=== PATIENT | female | born 1945 | race Caucasian/White ===

== ENCOUNTER 2025-01-29 11:16 | Inpatient (IN) | payer MEDICARE, BC, SELFPAY ==
[2025-01-29] VITALS (21 sets, daily range): BP systolic 102–143; BP diastolic 54–82; PULSE 49–82; RESP 11–19; TEMP 35.9–37.3; O2SAT 89–100; BMI 22.6
--- OUTSIDE RECORDS SUMMARY | 2025-01-29 11:38 | XMS_ITS | Data Portability ---
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 Plan of Treatment Reminders Order Date Submit Date Provider Last Modified By Organization Details Last Modified Time Details Appointments None record ed. Lab None record ed. Referral None record ed. Procedures None record ed. Surgeries None record ed. Imaging None record ed. Medication Orders None record ed. Patient TargetsNo targets recorded. Patient InstructionsNo instructions recorded. Reason for Referral None Reported. Results Created Date Observation Date Name Description Value Unit Range Abnormal Flag Note LastModifiedBy Organization Detail LastModifiedTime 06/19/1906/19/2018 CBC w/ auto diff white blood cell count 8.7 thous and/u L 3.8-10 .8 normal Not Available [facility] [address], [place], [address], 06/19/2018 07:48:19 06/19/1906/19/2018 CBC w/ auto diff red blood cell count 4.50 korin on/uL 3.80-5 .10 normal Not Available [facility] [address], [place], [address], 06/19/2018 07:48:19 06/19/1906/19/2018 CBC w/ auto diff hemoglobin 14.1 g/dL 11.7-1 5.5 normal Not Available [facility] [address], [place], [address], 06/19/2018 07:48:19 06/19/1906/19/2018 CBC w/ auto diff hematocrit 42.0 % 35.0-4 5.0 normal Not Available [facility] [address], [place], [address], 06/19/2018 07:48:19 06/19/1906/19/2018 CBC w/ auto diff MCV 93.3 fL 80.0-1 00.0 normal Not Available [facility] [address], [place], [address], 06/19/2018 07:48:19 06/19/1906/19/2018 CBC w/ auto diff MCH 31.3 pg 27.0-3 3.0 normal Not Available [facility] [address], [place], [address], 06/19/2018 07:48:19 06/19/1906/19/2018 CBC w/ auto diff MCHC 33.6 g/dL 32.0-3 6.0 normal Not Available [facility] [address], [place], [address], 06/19/2018 07:48:19 06/19/1906/19/2018 CBC w/ auto diff RDW 12.2 % 11.0-1 5.0 normal Not Available [facility] [address], [place], [address], 06/19/2018 07:48:19 06/19/1906/19/2018 CBC w/ auto diff platelet count 231 thous and/u L 140-40 0 normal Not Available [facility] [address], [place], [address], 06/19/2018 07:48:19 06/19/1906/19/2018 CBC w/ auto diff MPV 10.5 fL 7.5-12 .5 normal Not Available [facility] [place] [facility] [address], [place], [address], 06/19/2018 07:48:19 06/19/1906/19/2018 CBC w/ auto diff absolute neutrophils 7212 cells /uL 1500-7 800 normal Not Available [facility] [place] [facility] [address], [place], [address], 06/19/2018 07:48:19 06/19/1906/19/2018 CBC w/ auto diff absolute lymphocytes 1035 cells /uL 850-39 00 normal Not Available [facility] [place] [facility] [address], [place], [address], 06/19/2018 07:48:19 06/19/1906/19/2018 CBC w/ auto diff absolute monocytes 392 cells /uL 200-95 0 normal Not Available [facility] [place] [facility] [address], [place], [address], 06/19/2018 07:48:19 06/19/1906/19/2018 CBC w/ auto diff absolute eosinophils 17 cells /uL 15-500 normal Not Available [facility] [place] [facility] [address], [place], [address], 06/19/2018 07:48:19 06/19/1906/19/2018 CBC w/ auto diff absolute basophils 44 cells /uL 0-200 normal Not Available [facility] [place] [facility] [address], [place], [address], 06/19/2018 07:48:19 06/19/1906/19/2018 CBC w/ auto diff neutrophils 82.9 % normal Not Available [facility] [place] [facility] [address], [place], [address], 06/19/2018 07:48:19 06/19/1906/19/2018 CBC w/ auto diff lymphocytes 11.9 % normal Not Available [facility] [address], [place], [address], 06/19/2018 07:48:19 06/19/1906/19/2018 CBC w/ auto diff monocytes 4.5 % normal Not Available [facility] [address], [place], [address], 06/19/2018 07:48:19 06/19/1906/19/2018 CBC w/ auto diff eosinophils 0.2 % normal Not Available [facility] [address], [place], [address], 06/19/2018 07:48:19 06/19/1906/19/2018 CBC w/ auto diff basophils 0.5 % normal Not Available [facility] [address], [place], [address], 06/19/2018 07:48:19 06/19/1906/19/2018 CMP, serum or plasm a glucose 89 mg/dL 65-99 normal Fasti ng refer ence inter santos Not Available [facility] [address], [place], [address], 06/19/2018 07:48:18 06/19/1906/19/2018 CMP, serum or plasm a urea nitrogen (BUN) 12 mg/dL 7-25 normal Not Available [facility] [address], [place], [address], 06/19/2018 07:48:18 06/19/1906/19/2018 CMP, serum or plasm a creatinine 0.85 mg/dL 0.60-0 .93 normal For patie nts >49 years of age, the refer ence limit for Creat inine is appro ximat karlie 13% highe r for peopl e ident ified as Afric an-Am wing n. Not Available [facility] [address], [place], [address], 06/19/2018 07:48:18 06/19/1906/19/2018 CMP, serum or plasm a eGFR non-afr. gambian 69 mL/mi n/1.7 3m2 > or = 60 normal Not Available [facility] [address], [place], [address], 06/19/2018 07:48:18 06/19/1906/19/2018 CMP, serum or plasm a eGFR 80 mL/mi n/1.7 3m2 > or = 60 normal Not Available [facility] [address], [place], [address], 06/19/2018 07:48:18 06/19/1906/19/2018 CMP, serum or plasm a BUN/creatini ne ratio not applic able (calc ) 6-22 Not Available [facility] [address], [place], [address], 06/19/2018 07:48:18 06/19/1906/19/2018 CMP, serum or plasm a sodium 137 mmol/ L 135-14 6 normal Not Available [facility] [address], [place], [address], 06/19/2018 07:48:18 06/19/1906/19/2018 CMP, serum or plasm a potassium 4.7 mmol/ L 3.5-5. 3 normal Not Available [facility] [address], [place], [address], 06/19/2018 07:48:18 06/19/1906/19/2018 CMP, serum or plasm a chloride 99 mmol/ L 98-110 normal Not Available [facility] [address], [place], [address], 06/19/2018 07:48:18 06/19/19 19 06/19/2018 CMP, serum or plasm a carbon dioxide 28 mmol/ L 20-32 normal Not Available [facility] [address], [place], [address], 06/19/2018 07:48:18 06/19/19 19 06/19/2018 CMP, serum or plasm a calcium 9.8 mg/dL 8.6-10 .4 normal Not Available [facility] [address], [place], [address], 06/19/2018 07:48:18 06/19/1906/19/2018 CMP, serum or plasm a protein, total 7.5 g/dL 6.1-8. 1 normal Not Available [facility] [address], [place], [address], 06/19/2018 07:48:18 06/19/19 19 06/19/2018 CMP, serum or plasm a albumin 4.3 g/dL 3.6-5. 1 normal Not Available [facility] [address], [place], [address], 06/19/2018 07:48:18 06/19/1906/19/2018 CMP, serum or plasm a globulin 3.2 g/dL_ (calc ) 1.9-3. 7 normal Not Available [facility] [address], [place], [address], 06/19/2018 07:48:18 06/19/1906/19/2018 CMP, serum or plasm a albumin/glob ulin ratio 1.3 (calc ) 1.0-2. 5 normal Not Available [facility] [address], [place], [address], 06/19/2018 07:48:18 06/19/1906/19/2018 CMP, serum or plasm a bilirubin, total 0.9 mg/dL 0.2-1. 2 normal Not Available [facility] [address], [place], [address], 06/19/2018 07:48:18 06/19/19 19 06/19/2018 CMP, serum or plasm a alkaline phosphatase 56 U/L 33-130 normal Not Available [facility] [address], [place], [address], 06/19/2018 07:48:18 06/19/19 19 06/19/2018 CMP, serum or plasm a AST 20 U/L 10-35 normal Not Available [facility] [address], [place], [address], 06/19/2018 07:48:18 06/19/19 19 06/19/2018 CMP, serum or plasm a ALT 22 U/L 6-29 normal Not Available [facility] [address], [place], [address], 06/19/2018 07:48:18 Result Notes None recorded. Problems Name Problem SNOMED Code Status Onset Date Resolution Date Notes Provider Name and Address Organization Details Recorded Time Diverticu litis 393676610 Active 2018 s/p colectomy reed it Not Available [facility] 18:39:43 Osteoarth ritis 249065354 Active 2018 Not Available [facility] 18:39:43 Problem Notes None recorded. Medical Equipment None Reported. Allergies Allergen ID Allergen Name Allergen Category Reaction Reaction Severity Criticality Documentation Date Start Date Code Code System Note Provider Name and Address Organization Details Recorded Time 625090 Flagyl medicatio n nausea Not available Not available 03/05/2021 6 RxNorm Not Available [facility] 18:57:04 Medications Name Sig Start Date Stop Date Status Note LastModified by Organization Details LastModified Time betamethaso ne, augmented 0.05 % topical cream APPLY TWICE A DAY TO AREAS ON FEET FOR UP TO 2 WEEKS AT A TIME AND REPEAT NEEDED active Not Available Not Available No t Available ciprofloxac in 500 mg tablet Take 1 tablet every 12 hours by oral route. 02/23 completed Not Available Not Available Not Available cephalexin 500 mg capsule Take 1 capsule 3 times a day by oral route. active Not Available Not Available No t Available metronidazo le 0.75 % topical cream APPLY THIN LAYER TO ENTIRE FACE 1-2X DAILY 02/23 completed Not Available Not Available Not Available mupirocin 2 % topical ointment APPLY A SMALL AMOUNT TO THE AFFECTED AREA BY TOPICAL ROUTE 3 TIMES PER DAY active Not Available Not Available No t Available collagen (bovine) 2020 active Not Available Not Available Not Avai lable diclofenac 1 % topical gel APPLY 2 GRAM TO THE AFFECTED AREA(S) BY TOPICAL ROUTE 4 TIMES PER DAY 06/18 completed Not Available Not Available Not Available SulfaCleans e 8-4 8 %-4 % topical suspension WASH FACE DAILY LATHER AND LET SIT BEFORE RINSING FEW MINUTES BEFORE RINSING active Not Available Not Available No t Available [facility] [employer] patient takes Osteo Prime 2018 active Not Available Not Available Not Avai lable Fish Oil 1,000 mg (120 mg-180 mg) capsule one daily 02/23 completed Not Available Not Available Not Available cannabidiol (CBD) oral oil once a day 06/18 completed Not Available Not Available Not Available cannabidiol (CBD) extract 2020 active Not Available Not Available Not Avai lable turmeric 1,000 mg a day 2018 active Not Available Not Available Not Avai lable Vitals Date Recorded Body mass index (BMI) Body height Oxygen saturation Oxygen saturation in Arterial blood by Pulse oximetry Heart rate Respiratory rate Body weight Systolic And Diastolic Provider Name and Address Organization Details Last Updated DateTime 9 21.6 kg/m2 165.1 cm 97 % 97 % 70 /min 16 /min 73845.0 1 g 104/64 mm[Hg] Not Available [facility] 18:35:49 Date Recorded Body mass index (BMI) Body height Oxygen saturation Oxygen saturation in Arterial blood by Pulse oximetry Heart rate Respiratory rate Body weight Systolic And Diastolic Provider Name and Address Organization Details Last Updated DateTime 9 24.3 kg/m2 165.1 cm 98 % 98 % 72 /min 16 /min 25504.4 9 g 112/70 mm[Hg] Not Available [facility] 18:35:49 Social History None recorded. Functional Status None recorded. Mental Status None recorded. Family History Nothing Reported. Medical History No medical history recorded. Gynecological HistoryNo gynecological history recorded. Obstetrics History GPAL:G 0 P 0 0 0 0 Immunizations Vaccine Type Date Status Note Provider Nam e and Address Organization Details Recorded Time zoster, unspecified formulation 8 completed Not Available [facility] 03/05/2021 18:55:25 Influenza, split virus, quadrivalent, preservative 8 completed Not Available [facility] 03/05/2021 18:55:25 Td(adult) unspecified formulation 7 completed Not Available [facility] 03/05/2021 18:55:25 Past Encounters Encounter ID Performer Location Encounter Start Date Encounter Closed Date Diagnosis/Indication Diagnosis SNOMED-CT Code Diagnosis ICD10 Code Diagnosis IMO Codes Diagnosis Note [id number] MD ALLEN Whalen [address] [place] [address] 04/13/2018 00:00:00 05/12/2018 18:07:35 [id number] MD ALLEN Whalen [address] [place] [address] 06/18/2018 00:00:00 06/18/2018 21:52:32 [id number] MD ALLEN Whalen [address] [place] [address] 02/23/2021 00:00:00 02/23/2021 11:59:00 Health Concerns Section Related Observation LastModified by Organization Detai ls LastModified Time None Recorded Concern Status LastModified by Organization Details LastModified Time None Recorded Advance Directives Directive None Recorded Payers Insurance Date Sequence Insurance Name Policy Number Policy Timmons Covered Member ID Timmons Member ID Guarantor Name 05/10/2021 1 [place] Daria Hale [id number] Daria Hale 05/10/2021 1 [facility] [id number] Daria Hale [id number] Daria Hale 05/10/2021 1 [place]) [id number] Daria Hale [id number] Daria Hale OBGyn Episode No OBEpisode recorded.
--- NOTE | 2025-01-29 11:43 | CRLHL7_ITS ---
For Patients: As a result of the Century Cures Act, medical imaging exams and procedure reports are released immediately into your electronic medical record. You may view this report before your referring provider. If you have questions, please contact your health care provider. INDICATION: Preoperative cardiovascular evaluation. COMPARISON: None available. TECHNIQUE: Single AP view of the chest. FINDINGS: Medical Devices: None. Lung Volumes: Adequate inspiration. No significant atelectasis. Lungs: Clear lungs. Pleura and Pleural spaces: No significant pleural effusion. No pneumothorax. Mediastinum: Normal cardiomediastinal silhouette. Bony Thorax and Soft Tissues: No significant incidental findings. Incidental note is made of mild lower thoracic dextroscoliosis. IMPRESSION: No significant incidental findings. Dictated by Mich Thompson MD @ 01/29/2025 12:36:28 PM (Electronically Signed)
--- NOTE | 2025-01-29 11:45 | ED_ITS ---
HPI - General Adult General Chief complaint: Unspecified Complaint, Adult Stated complaint: Needs hip procedure Time Seen by Provider: 01/29/25 11:22 History of Present Illness HPI narrative: Patient is a 79 year white female who unfortunately broke her hip a couple weeks ago, she has been doing some PT walking with a cane. She had a CT scan done that showed a hip fracture and is scheduled for surgery today. She unfortunately did not get a preoperative evaluation complete, and was sent to the ER. The patient has been NPO since last night at 7:00 p.m.. She describes a history of peripheral neuropathy. She has been on only oral medicines [id number]. No blood thinners. No history of bleeding or bruising problems. She has had no chest pain or shortness of breath. No cardiovascular history. She is allergic to the Lexapro and Flagyl, with more untoward side effects r ather than true allergy. Related Data Home Medications ?Medication ?Instructions ?Recorded ?Confirmed No Known Home Medications 01/29/2501/09 Allergies Allergy/AdvReac Type Severity Reaction Status Date / Time escitalopram (From Lexapro) Allergy increased Verified 01/29/25 11:26 nausea and anxiety metronidazole (From Flagyl) AdvReac nausea and Verified 01/29/25 11:26 headache Review of Systems Status of ROS: Reports: 6 or more systems reviewed and unremarkable except as noted in History and below [facility] Medical History Hoarseness of voice ?R49.0 - Dysphonia (ICD-10) Rosacea ?L71.9 - Rosacea, unspecified (ICD-10) Anxiety ?F41.9 - Anxiety disorder, unspecified (ICD-10) Peripheral sensory neuropathy ?G60.8 - Other hereditary and idiopathic neuropathies (ICD-10) Leukopenia ?D72.819 - Decreased white blood cell count, unspecified (ICD-10) Diverticulitis ?K57.92 - Diverticulitis of intestine, part unspecified, without perforation or abscess without bleeding (ICD-10) Osteopenia ?M85.80 - Other specified disorders of bone density and structure, unspecified site (ICD-10) Surgical History Status post sclerotherapy of varicose veins ?Z98.890 - Other specified postprocedural states (ICD-10) ?Z86.79 - Personal history of other diseases of the circulatory system (ICD- 10) History of appendectomy ?Z90.49 - Acquired absence of other specified parts of digestive tract (ICD- 10) History of removal of ovarian cyst (1979) ?Z98.890 - Other specified postprocedural states (ICD-10) ?Z87.42 - Personal history of other diseases of the female genital tract (ICD-10) History of resection of large bowel (10/2006) ?Z90.49 - Acquired absence of other specified parts of digestive tract (ICD- 10) History of esophagogastroduodenoscopy (EGD) (11/03/11) ?Z98.890 - Other specified postprocedural states (ICD-10) Status post laser ablation of incompetent vein (2007) ?Z98.890 - Other specified postprocedural states (ICD-10) Social History Narrative: former smoker (1976) Smoking Status: Former smoker What tobacco products do you use: cigarettes Smoking quit date/years: >15 years ago Do you use any of these nicotine containing products: None Second hand tobacco smoke exposure: No Exam Narrative: Exam Narrative: Objective: Patient is alert or x3 no distress HEENT is unremarkable no facial asymmetry no scleral icterus Neck is supple Chest is clear no rales or wheezing Back exam unremarkable no tenderness Heart rhythm regular 2/6 systolic murmur Abdomen benign soft nontender Mild tenderness with movement of the left hip. Distal CMS shows some slight bruising of her ankle area anteriorly but no marked edema or swelling. Distal CMS is intact. Const: Vital Signs, click to edit/add: Vital Signs - 24 hr 01/29/25 11:20 Temperature 97.5 F L Pulse Rate [Right Pulse Oximeter] 71 Respiratory Rate 18 Blood Pressure [Ri ght Upper Arm] 135/78 Pulse Oximetry 100 Oxygen Delivery Me thod Room Air Course Vital Signs Vital signs: Initial Vital Signs Temperature 97.5 F L 01/29/25 11:20 Temperature Source Temporal Artery Scan 01/29/25 11:20 Pulse Rate 71 01/29/25 11:20 Pulse Rhythm Regular 01/29/25 11:20 Pulse Strength 3+ Normal 01/29/25 11:20 Respiratory Rate 18 01/29/25 11:20 Blood Pressure 135/78 01/29/25 11:20 Blood Pressure Mean 97 01/29/25 11:20 Blood Pressure Position Sitting 01/29/25 11:20 Pulse Oximetry 100 01/29/25 11:20 Oxygen Delivery Method Room Air 01/29/25 11:20 Vital Signs Temperature 97.5 F L 01/29/25 11:20 Pulse Rate 71 01/29/25 11:20 Respiratory Rate 18 01/29/25 11:20 Blood Pressure 135/78 01/29/25 11:20 Pulse Oximetry 100 01/29/25 11:20 Oxygen Delivery Method Room Air 01/29/25 11:20 Temperature 97.5 F L 01/29/25 11:20 Pulse Rate 71 01/29/25 11:20 Respiratory Rate 18 01/29/25 11:20 Blood Pressure 135/78 01/29/25 11:20 Pulse Oximetry 100 01/29/25 11:20 Oxygen Delivery Method Room Air 01/29/25 11:20 Medications Administered Medications: Discontinued Medications Generic Name Dose Route Start Last Admin Trade Name Freq PRN Reason Stop Dose Admin Sodium Chloride 500 mls @ 500 mls/hr 01/29/25 11:43 01/29/25 12:44 0.9 % Sodium Chloride 500 Ml IV 01/29/25 12:42 500 mls/hr .Q1H ONE Administration Ceftriaxone Sodium 1 gm/ 100 mls @ 200 mls/hr 01/29/25 12:23 01/29/25 12:44 Sodium Chloride IVPB 01/29/25 12:24 200 mls/hr ONCE ONE Administration Medical Decision Making [facility] Narrative Medical decision making narrative: 79-year-old female with a femoral neck fracture, impacted. Orthopedics plans on fixing this later today, she has been NPO. Will type and screen, get an EKG, get a chest x-ray. IV fluid will be given should be kept NPO. Electrolytes and labs to be obtained as well as UA. Patient be sent to or after completion of these studies if these are reassuring. Anesthesia consult will be obtained. Given the patient's relative health NPO status, and lack of significant medical illnesses, she would be cleared for surgery for labs and EKG are reassuring. Addendum 12:20 p.m.: The patient's EKG by my ended independent interpretation shows sinus rhythm first-degree AV block nonspecific T-wave change. Patient's chest x-ray by my review looks unremarkable. She does appear to have a urinary tract infection was given 1 g of Rocephin IV. Lab studies are pending at this time the be reviewed in the return. Addendum 12:30 p.m.: Patient's ER profile looks unremarkable she will be evaluated by Anesthesia and Orthopedics and OR this afternoon. Given medical clearance for surgery. Lab Data Labs: Lab Results 01/29/25 01/29/25 Range/Units 11:55 12:12 WBC 3.90 L (4.50-11.00) K/uL RBC 4.68 (4.00-5.20) m/uL Hgb 14.6 (12.0-16.0) gm/dL Hct 43.4 (33.0-51.0) % MCV 93 (80-100) fL MCH 31 (26-34) pg MCHC 34 (32-36) gm/dL RDW Coeff of [place] 12.7 (11.5-15.5) % Plt Count 258 (140-440) K/uL Neut % (Auto) 77.9 H (42.0-72.0) % Lymph % (Auto) 15.1 L (20-44) % [place] % (Auto) 6.2 (0.0-11.0) % Eos % (Auto) 0.3 (0.0-7.0) % Baso % (Auto) 0.5 (0.0-3.0) % Neut # (Auto) 3.00 (1.7-7.0) K/uL Lymph # (Auto) 0.60 L (0.90-2.90) K/uL [place] # (Auto) 0.20 (0.00-0.90) K/UL Eos # (Auto) 0.00 (0.00-0.50) K/uL Baso # (Auto) 0.00 (0.00-0.30) K/uL Abs Immat Gran (auto) 0.00 (0.00-0.30) K/uL Imm/Tot Granulo (auto) 0.0 % Sodium 135 (135-149) mmol/L Potassium 4.2 (3.6-5.1) mmol/L Chloride 99 (96-114) mmol/L Carbon Dioxide 25 (20-32) mmol/L Anion Gap 11 (7-15) mEq/L BUN 18 (7-30) mg/dL Creatinine 0.7 (0.5-1.5) mg/dL Estimated Creat Clear 42.39 Estimated GFR 89 ml/min Glucose 104 (60-115) mg/dL Calcium 9.6 (8.4-10.6) mg/dL Urine Color Yellow (Yellow) Urine Appearance Clear (Clear) Urine pH 5.5 (5.0-8.5) Ur Specific [place] >= 1.030 (1.000-1.030) Urine Protein Trace A (Negative) Urine Glucose (UA) Negative (Negative) Urine Ketones 2+ A (Negative) Urine Blood Trace-intact A (Negative) Urine Nitrite Positive A (Negative) Urine Bilirubin Negative (Negative) Urine Urobilinogen 0.2 (0.2-1.0) Ur Leukocyte Esterase Negative (Negative) Urine RBC 0-2 (0-2) Urine WBC 10-25 A (0-5) Ur Squamous Epith Cells None (None-Few) Urine Bacteria Many A (None) Discharge Plan Discharge Clinical Impression: Hip fracture, Urinary tract infection Patient Disposition: Admitted As Inpatient Condition: Stable
[2025-01-29 12:02] LABS: Appearance Urine Clear (Clear)
[2025-01-29 12:19] LABS: Hematocrit* 43.4 % (33.0-51.0); Hemoglobin* 14.6 gm/dL (12.0-16.0); Immature Granulocytes Abs Auto 0.00 K/uL (0.00-0.30); Immature Granulocytes Pct Auto 0.0 %; Mean Corpuscular HGB Conc 34 gm/dL (32-36); Mean Corpuscular Hemoglobin 31 pg (26-34); Mean Corpuscular Volume 93 fL (80-100); RDW Coefficient of Variation % 12.7 % (11.5-15.5); Red Blood Count* 4.68 m/uL (4.00-5.20); White Blood Count* 3.90 K/uL (4.50-11.00)
[2025-01-29 12:23] LABS: Lymphocytes Absolute Auto 0.60 K/uL (0.90-2.90); Slide Review Reflex No
[2025-01-29 12:30] LABS: Chloride* 99 mmol/L (96-114)
[2025-01-29 12:31] LABS: Potassium* 4.2 mmol/L (3.6-5.1); Sodium* 135 mmol/L (135-149)
[2025-01-29 12:33] LABS: Blood Urea Nitrogen* 18 mg/dL (7-30); Creatinine* 0.7 mg/dL (0.5-1.5); Est. Creatinine Clearance* 42.39; Estimated Glomerular Filt Rate 89 ml/min
[2025-01-29 12:34] LABS: Anion Gap 11 mEq/L (7-15); Calcium* 9.6 mg/dL (8.4-10.6); Carbon Dioxide* 25 mmol/L (20-32); Glucose* 104 mg/dL (60-115)
--- NOTE | 2025-01-29 12:42 | CRLHL7_ITS ---
For Patients: As a result of the Cures Act, medical imaging exams and procedure reports are released immediately into your electronic medical record. You may view this report before your referring provider. If you have questions, please contact your health care provider. Indication: LEFT HIP ORIF Technique: Two fluoroscopic images of the left hip. Fluoroscopic time 54.5 seconds. IMPRESSION: Fluoroscopic guidance for open reduction internal fixation of proximal left femoral fracture. Dictated by Chase Murphy MD @ 01/29/2025 4:25:12 PM (Electronically Signed)
--- NOTE | 2025-01-29 12:42 | P.ORHP_ITS ---
History of Present Illness History of Present Illness Time Seen by Provider: 12:25 Date Seen: 01/29/25 Chief complaint: Left Hip Fracture Narrative: Daria Hale is an active 79 year old female who sustained a ground level fall over 2 weeks ago while getting out of a chair and landed on her left hip. Following the injury, she developed hip discomfort and right ankle pain. She was initially seen by an outside provider couple of days after the injury, and x-rays of the left ankle were reportedly negative. No imaging of the hip was performed at that visit. She was referred to physical therapy but continued to have hip discomfort with weight-bearing activities, which she localized to the anterior hip and groin. She was seen for follow-up at [facility] yesterday, where x-rays revealed a valgus impacted left hip femoral neck fracture. She was referred to Orthopedics this morning for further evaluation and treatment. Currently, patient reports discomfort in her left anterior hip and groin with weight-bearing activities. She denies pain at rest. Since her injury, she in using a cane for assistance with ambulation, but she use no assist devices prior to the injury. She has been taking ibuprofen and Tylenol on an as-needed basis for pain control. She has had nothing to eat or drink since last night. [facility] Medical History Hoarseness of voice ?R49.0 - Dysphonia (ICD-10) Rosacea ?L71.9 - Rosacea, unspecified (ICD-10) Anxiety ?F41.9 - Anxiety disorder, unspecified (ICD-10) Peripheral sensory neuropathy ?G60.8 - Other hereditary and idiopathic neuropathies (ICD-10) Leukopenia ?D72.819 - Decreased white blood cell count, unspecified (ICD-10) Diverticulitis ?K57.92 - Diverticulitis of intestine, part unspecified, without perforation or abscess without bleeding (ICD-10) Osteopenia ?M85.80 - Other specified disorders of bone density and structure, unsp ecified site (ICD-10) Surgical History Status post sclerotherapy of varicose veins ?Z98.890 - Other specified postprocedural states (ICD-10) ?Z86.79 - Personal history of other diseases of the circulatory system (ICD- 10) History of appendectomy ?Z90.49 - Acquired absence of other specified parts of digestive tract (ICD- 10) History of removal of ovarian cyst (1979) ?Z98.890 - Other specified postprocedural states (ICD-10) ?Z87.42 - Personal history of other diseases of the female genital tract (ICD -10) History of resection of large bowel (10/2006) ?Z90.49 - Acquired absence of other specified parts of digestive tract (ICD- 10) History of esophagogastroduodenoscopy (EGD) (11/03/11) ?Z98.890 - Other specified postprocedural states (ICD-10) Status post laser ablation of incompetent vein (2007) ?Z98.890 - Other specified postprocedural states (ICD-10) Social History Narrative: former smoker (1976) Smoking Status: Former smoker What tobacco products do you use: cigarettes Smoking quit date/years: >15 years ago Do you use any of these nicotine containing products: None Second hand tobacco smoke exposure: No Meds Home Medications and Allergies Home Medications ?Medication ?Instructions ?Recorded ?Confirmed ?Type No Known Home Medications 01/29/2501/09 History Allergies Allergy/AdvReac Type Severity Reaction Status Date / Time escitalopram (From Lexapro) Allergy increased Verified 01/29/25 11:26 nausea and anxiety metronidazole (From Flagyl) AdvReac nausea and Verified 01/29/25 11:26 headache Ortho Exam Narrative Exam Narrative: General: Patient is alert and oriented in no apparent distress. Musculoskeletal: Left lower extremity was examined. No obvious deformity or significant soft tissue swelling. No pain with range of motion of the hip. Sensation was intact to light touch throughout the dorsal plantar aspects of the foot. EHL, tibialis anterior, gastrocnemius/soleus were intact. Foot was warm and well perfused with 2+ DP and 1+ PT pulses. Const Vital Signs, click to edit/add: Vital Signs - 24 hr 01/29/25 11:20 Temperature 97.5 F L Pulse Rate [Right Pulse Oximeter] 71 Respiratory Rate 18 Blood Pressure [Right Upper Arm] 135/78 Pulse Oximetry 100 Oxygen Delivery Method Room Air Results Labs Labs: Laboratory Results - last 48 hr 01/29/25 01/29/25 11:55 12:12 WBC 3.90 L RBC 4.68 Hgb 14.6 Hct 43.4 MCV 93 MCH 31 MCHC 34 RDW Coeff of [place] 12.7 Plt Count 258 Neut % (Auto) 77.9 H Lymph % (Auto) 15.1 L [place] % (Auto) 6.2 Eos % (Auto) 0.3 Baso % (Auto) 0.5 Neut # (Auto) 3.00 Lymph # (Auto) 0.60 L [place] # (Auto) 0.20 Eos # (Auto) 0.00 Baso # (Auto) 0.00 Abs Immat Gran (auto) 0.00 Imm/Tot Granulo (auto) 0.0 Sodium 135 Potassium 4.2 Chloride 99 Carbon Dioxide 25 Anion Gap 11 BUN 18 Creatinine 0.7 Estimated Creat Clear 42.39 Estimated GFR 89 Glucose 104 Calcium 9.6 Urine Color Yellow Urine Appearance Clear Urine pH 5.5 Ur Specific [place] >= 1.030 Urine Protein Trace A Urine Glucose (UA) Negative Urine Ketones 2+ A Urine Blood Trace-intact A Urine Nitrite Positive A Urine Bilirubin Negative Urine Urobilinogen 0.2 Ur Leukocyte Esterase Negative Urine RBC 0-2 Urine WBC 10-25 A Ur Squamous Epith Cells None Urine Bacteria Many A Diagnostic results Additional Comments: AP pelvis, AP left hip, and lateral left hip x-rays performed at [facility] on 01/28/2025 were reviewed. These demonstrated a valgus impacted subcapital left femoral neck fracture. Hip joint spaces were well maintained with minimal degenerative changes. Assessment and Plan Assessment and plan (1) Closed fracture of neck of left femur: Problem comment: Valgus impacted subcapital femoral neck fracture Status: Acute (2) Urinary tract infection: Status: Acute Plan Patient has a valgus impacted subcapital left femoral neck fracture. Risks and benefits of operative treatment and alternatives to surgery were discussed with the patient and her . Recommendation was subsequently made for surgical intervention consisting of left hip closed versus open reduction and internal fixation to allow for early mobilization and advancement of weight-bearing, decreased pain, and healing of the fracture. We did talk about possible need for bipolar hip hemiarthroplasty should the fracture be noted to be more displaced intraoperatively. Risks of surgery to include, but not limited to, infection, neurovascular injury, malunion, nonunion, hip avascular necrosis, deep vein thrombosis, pulmonary embolism, heart attack, stroke, and even were discussed with patient and her . All of their questions were answered. After discussion, they were in agreement with plan to proceed with surgery. Patient is being admitted through the emergency department and has been medically cleared for surgery. She was noted to have a UTI on preoperative lab and was given a dose of Rocephin in the emergency department. We will plan to continue to treat this with oral antibiotics postoperative. She is to remain on bedrest with plan for surgery this afternoon. She has been NPO since before midnight last night.
[2025-01-29] MEDS: cefTRIAXone 1 GM in 0.9 % SODIUM CHLORIDE Mini-bag 100 ML IVPB (12:44)
[2025-01-29] MEDS: 0.9 % SODIUM CHLORIDE 500 ML 500 ML IV (12:44)
[2025-01-29] MEDS: LACTATED RINGERS 1000 ML 1,000 ML 100 ML IV ×2 (13:10→14:45)
[2025-01-29] MEDS: MIDAZOLAM HCL 1 MG/ML inj IVP (13:30)
--- NOTE | 2025-01-29 13:42 | PM.ORPRC ---
Procedure Note Date of procedure: 01/29/25 Procedure: PREOPERATIVE DIAGNOSES: 1. Left subcapital femoral neck fracture, closed, valgus impacted POSTOPERATIVE DIAGNOSES: 1. Left subcapital femoral neck fracture, closed, valgus impacted PROCEDURE: 1. Left femoral neck fracture fixation with internal fixation 2. 33498 - Intraoperative fluoroscopy up to 1 hour SURGEON: Pedrito Tamayo MD MACHINE INSPECTOR: Nan DalePGerson Assistance was medically necessary in order to safely perform the procedure without increased blood loss or morbidity. Assistance was provided through positioning, instrumentation, and retraction of incisions for better visualization of underlying structures and cauterization for hemostasis. Assistance was also provided through wound closure, instillation of anesthetic, application of sterile dressing, and safe transport from the operative suite. ANESTHESIA: Spinal with regional nerve block IMPLANTS: Synthes femoral neck system plate 1-hole with 75 mm femoral neck system bolt, 75 mm antirotation screw, and 5 mm x 30 mm locking screw EBL: 50 ml COMPLICATIONS: None evident INDICATIONS: Daria is a 79-year-old female who sustained a ground level fall in her home 2-3 weeks ago. Following the injury, she was able to bear weight but had persistent anterior hip and groin pain with weight-bearing activities. She was subsequently seen in an outpatient clinic and diagnosed with an impacted left femoral neck fracture. Surgical stabilization of this fracture is recommended to allow for early mobilization and advancement of weight-bearing, decreased pain, and healing of the fracture. Prior to procedure, risks and benefits of the operative and non operative treatment were discussed with the patient. After discussion of risks, benefits, and alternatives of surgery, informed consent was obtained and the left hip was marked. FINDINGS: Stable, valgus impacted, subcapital femoral neck fracture PROCEDURE: Patient was seen preoperatively and operative site was marked. Regional nerve block was then performed by anesthesia staff. She was then brought to the operating room, where general anesthesia was administered by the anesthesia staff. 1 g IV Ancef and 1 g TXA were administered preoperatively. The patient was positioned on the [place] table. A padded perineal post was placed and all bone prominences were well padded. Gentle traction was placed through the hip. Fluoroscopic imaging showed destruction of the hip joint but no movement at the fracture site. Given that fracture was 2-1/2-weeks-old and alignment was in acceptable position, we accepted this alignment and did not attempt further reduction. Left hip and lower extremity were prepped and draped in usual sterile fashion. A surgical time-out was performed confirming patient identity, surgical site, and surgical procedure. A skin incision was then made over the lateral aspect of the hip in line with the femoral neck axis, which measured approximately 6-8 cm in length. Deep fascial layer was incised in line with the skin incision and blunt dissection was used to dissect down to bone. Using the 130 degree angle guide, a guidewire was placed into the center-center position in the subchondral bone of the femoral head on both AP and lateral images. Once the guidewire was confirmed to be in correct position, depth was measured and decision was made to proceed with a 75 mm implant. Next, an antirotation guidewire was placed into the anterior superior aspect of the femoral neck and across the fracture site. Correct position of this anti rotation guidewire was confirmed with fluoroscopic imaging in AP and lateral planes. The opening drill bit and Reamer was then used ream over the guidewire for the bolt to the correct depth. The femoral neck system implant was then inserted over the guidewire and tapped down until the plate was flush with the lateral aspect of the femur. Guidewire was then removed. The hole for the locking screw was then drilled through the plate and the correct length 5.0 mm locking screw was inserted and secured into position. Next the hole for the anti rotation screw was drilled, and antirotation screw secured into position. Both guidewires were then removed, as was the insertion guide for the implant. Final fluoroscopic images were obtained which confirmed the fracture reduction and correct placement of the femoral neck implant system and screws. Wound was then irrigated with normal saline. The deep fascial layer was closed with 0 Vicryl and subcutaneous layer was closed with 2-0 Vicryl and 2-0 Stratafix. Sterile dressing was applied. Patient was awoken from anesthesia and transferred to the PACU in stable condition. PLAN: 1. Patient will be admitted to the hospital for observation and initial physical therapy. 2. Mobilize with physical therapy and occupational therapy. - Weight bear as tolerated left lower extremity. 3. Pain control: - Acetaminophen and Oxycodone for pain as needed. - IV pain medications for breakthrough pain - Ice for pain and swelling 4. Postoperative prophylactic antibiotics x2 doses 5. DVT prophylaxis: - aspirin 81 mg b.i.d.. for 35 days - SCDs bilateral lower extremities. 6. Follow-up with PA in Orthopedic Clinic in 1-2 weeks. Follow up with Dr. Tamayo [facility] 6 weeks postoperatively.
--- NOTE | 2025-01-29 13:58 | SUR.PREOP ---
TIME?OUT:?1328 PT/RN/MDA?VERIFICATION?OF?SURGICAL?SITE,?PROCEDURE,?AND?CONSENT OBTAINED?PRIOR?TO?INVASIVE?PROCEDURE. all in agreement
[2025-01-29] MEDS: TRANEXAMIC ACID 100 MG/ML INJ 1000 MG IV (14:00)
--- NOTE | 2025-01-29 14:57 | P.ANES_ITS ---
Anesthesia Charges Start Date/Time Anesthesia Start Date: 01/29/25 Anesthesia Start Time: 13:45 Stop Date/Time Anesthesia Stop Date: 01/29/25 Anesthesia Stop Time: 15:14 Summary Extremes of Age - Over 70 or under 1: MDA Coding CPT Codes CPT Codes: ANESTH SURGERY OF FEMUR - 35809 ([id number]) P1 - NORMAL HEALTHY PATIENT, QK - COFFEE HOST 2-4 CNCRNT ANES PROC, QX - MANAGER STERILE PROCESSING SVC W/ MD MED DIRECTION Additional Codes: Summary - Extremes of Age - Over 70 or under 1: MDA ([id number])
--- NOTE | 2025-01-29 14:57 | P.NB_ITS ---
Nerve Block Nerve Block Time Seen by Provider: 13:30 Date Seen: 01/29/25 Type of block requested by surgeon for post-operative analgesia: LEYLA/LFCN Side: left Time out performed: Yes Verification of patient name: Yes Verification of date of : Yes Site marking: site marked Name of person performing procedure: Steffen Continuous monitoring Was continuous monitoring of O2 sat, B/P, surveillance system monitor, recorded every 15 minutes?: Yes Procedure Checklist: sterile prep, needles and gloves Ultrasound guided. Images saved: Yes Medications given in 5ml increments after negative aspiration: Ropivicaine %: 0.5 mL: 30 Needle gauge: 20 Precedex (mcg): 25 Patient tolerated procedure well: Yes Additional comments: Needle noted below psoas tendon needle noted adjacent to LFCN Block Charges Block Charge (with Pro Fee): Other Periph Nerve Block Use of Ultrasound Machine for Block: Yes- US Guidance/pain block
--- NOTE | 2025-01-29 14:57 | W.ANESCHARGE ---
Anesthesia Charges Start Date/Time Anesthesia Start Date: 01/29/25 Anesthesia Start Time: 13:45 Stop Date/Time Anesthesia Stop Date: 01/29/25 Anesthesia Stop Time: 15:14 Summary Extremes of Age - Over 70 or under 1: MDA Coding CPT Codes CPT Codes: ANESTH SURGERY OF FEMUR - 71856 ([id number]) P1 - NORMAL HEALTHY PATIENT, QK - DIRECTOR OF CAREER RESOURCES 2-4 CNCRNT ANES PROC, QX - TECHNICAL SALES SPECIALIST SVC W/ MD MED DIRECTION Additional Codes: Summary - Extremes of Age - Over 70 or under 1: MDA ([id number])
--- NOTE | 2025-01-29 15:13 | P.ANES_ITS ---
Anesthesia Charges Start Date/Time Anesthesia Start Date: 01/29/25 Anesthesia Start Time: 13:45 Stop Date/Time Anesthesia Stop Date: 01/29/25 Anesthesia Stop Time: 15:14 Coding CPT Codes CPT Codes: ANESTH HIP JOINT SURGERY - 18909 ([id number]) P1 - NORMAL HEALTHY PATIENT, QK - PHYSICS INSTRUCTOR 2-4 CNCRNT ANES PROC, QX - DINING ROOM CAPTAIN SVJaqueline W/ MED DIRECTION
--- NOTE | 2025-01-29 15:13 | W.ANESCHARGE ---
Anesthesia Charges Start Date/Time Anesthesia Start Date: 01/29/25 Anesthesia Start Time: 13:45 Stop Date/Time Anesthesia Stop Date: 01/29/25 Anesthesia Stop Time: 15:14 Coding CPT Codes CPT Codes: ANESTH HIP JOINT SURGERY - 42829 ([id number]) P1 - NORMAL HEALTHY PATIENT, QK - INKJET OPERATOR 2-4 CNCRNT ANES PROC, QX - NAIL TECH SVJaqueline W/ MED DIRECTION
[2025-01-29] MEDS: ACETAMINOPHEN 325 MG TABLET 650 MG PO ×2 (17:02→22:27)
--- NOTE | 2025-01-29 17:55 | P.IMCN_ITS ---
Date of Consult Patient: Ashley Patient Consult date: 01/29/25 Requesting Physician: Orthopedics Primary Care Provider: Marie Jack MD Consult Narrative Narrative: Daria Hale is a 79 year old female with peripheral neuropathy and osteopenia who fell 2 weeks ago at home. Initially not suspected to have a fracture. She was ambulatory with pain in her left hip. Today was discovered to have a subcapital femur fracture. She was taken to the operating room by Dr. Tamayo for ORIF. Postoperatively she reports generally doing well. She was chilled and is now warming up. She has had no other injury and no other illness. She reports no previous problems with surgery, bleeding or clotting problems. She does report that her mother had recurrent problem with blood clots in her legs. Unclear if these were superficial or deep venous thrombosis. Patient has no personal history of thrombophilia. She has peripheral neuropathy that primarily causes her feet to feel numb and cold. She has some discomfort with this as well. She thinks the numbness in her feet contributed to her fall 2 weeks ago. Review of Systems Narrative: She reports being well except for as noted above [facility] Medical History (Updated 01/29/25 @ 18:13 by Gerard Blue MD) Osteoporosis ?M81.0 - Age-related osteoporosis without current pathological fracture (ICD- 10) Hoarseness of voice ?R49.0 - Dysphonia (ICD-10) Rosacea ?L71.9 - Rosacea, unspecified (ICD-10) Anxiety ?F41.9 - Anxiety disorder, unspecified (ICD-10) Peripheral sensory neuropathy ?G60.8 - Other hereditary and idiopathic neuropathies (ICD-10) Leukopenia ?D72.819 - Decreased white blood cell count, unspecified (ICD-10) Diverticulitis ?K57.92 - Diverticulitis of intestine, part unspecified, without perforation or abscess without bleeding (ICD-10) Osteopenia ?M85.80 - Other specified disorders of bone density and structure, unspecified site (ICD-10) Surgical History History of open reduction and internal fixation (ORIF) procedure (01/29/25) ?Z98.890 - Other specified postprocedural states (ICD-10) Status post sclerotherapy of varicose veins ?Z98.890 - Other specified postprocedural states (ICD-10) ?Z86.79 - Personal history of other diseases of the circulatory system (ICD- 10) History of appendectomy ?Z90.49 - Acquired absence of other specified parts of digestive tract (ICD- 10) History of removal of ovarian cyst (1979) ?Z98.890 - Other specified postprocedural states (ICD-10) ?Z87.42 - Personal history of other diseases of the female genital tract (ICD-10) History of resection of large bowel (10/2006) ?Z90.49 - Acquired absence of other specified parts of digestive tract (ICD- 10) History of esophagogastroduodenoscopy (EGD) (11/03/11) ?Z98.890 - Other specified postprocedural states (ICD-10) Status post laser ablation of incompetent vein (2007) ?Z98.890 - Other specified postprocedural states (ICD-10) Family History (Updated 01/29/25 @ 18:00 by Gerard Blue MD) Mother Heart disease Stroke Thrombophilia Father Heart disease Sister Diabetes Social History (Updated 01/29/25 @ 18:00 by Gerard Blue MD) Narrative: She lives in a home in [place] with her . The home has steps everywhere. She has been able to walk this steps even with her broken hip for the past 2 weeks. She is a former smoker (1976). She drinks about 2 glasses of wine per week. What is your current living situation?: I presently have a place to live Problems where you live: no known problems In the past 12 months, utilities in danger of being shut off: no In past 12 months, lack of transportation kept you from medical appts, meetings, work, or getting things needed for daily living: no In the past 12 mos, have been you worried that your food would run out before you had money to buy more?: never true In the past 12 mos, the food you bought just didn't last and you didn't have money to buy more?: never true Smoking Status: Never smoker Do you use any of these nicotine containing products: None Second hand tobacco smoke exposure: No How often do you have a drink containing alcohol: monthly or less How many standard drinks containing alcohol do you have on a typical day: 1 or 2 AUDIT-C Alcohol total score: 1 Non-prescribed substance use: denies use service: No Meds Home Medications and Allergies Home Medications ?Medication ?Instructions ?Recorded ?Confirmed ?Type acetaminophen 500 mg tablet 500 - 1,000 mg (1 - 2 x 50 0 mg) PO 01/29/25 Rx Q4-6H PRN pain #100 tabs aspirin 81 mg tablet 81 mg PO BID DVT prophylaxis 35 01/29/25 Rx days #70 tabs mirtazapine 7.5 mg tablet 7.5 mg PO QPM 01/29/2501/29 History oxycodone 5 mg tablet 2.5 - 5 mg (0.5 - 1 x 5 mg) PO 01/29/25 Rx Q4-6H PRN pain #30 tabs sennosides 8.6 mg tablet (Senna 8.6 - 17.2 mg (1 - 2 x 8.6 mg) PO 01/29/25 Rx Lax) BID PRN constipation #60 tab s Allergies Allergy/AdvReac Type Severity Reaction Status Date / Time escitalopram (From Lexapro) Allergy increased Verified 01/29/25 11:26 nausea and anxiety metronidazole (From Flagyl) AdvReac nausea and Verified 01/29/25 11:26 headache Exam Narrative: Exam Narrative: She is alert and appears in no distress. She gives her own history. Oropharynx is normal. Neck is supple without mass or adenopathy. Respirations are clear to auscultation. Cardiovascular: S1, S2, regular rate and rhythm. No murmur gallop or rub. Somewhat distant heart sounds. Abdomen: Bowel sounds are present. Abdomen is soft without tenderness or mass. Lower extremities examined. She has intact pulses in sensation though she described diminished sensation in her feet. Feet are slightly cool to touch she has intact pedal pulses no edema. Const: Vital Signs, click to edit/add: Vital Signs - 24 hr 01/29/25 11:20 01/29/25 13:28 01/29/25 13:35 Temperature 97.5 F L Pulse Rate 77 71 Pulse Rate [Right Pulse Oximeter] 71 Respiratory Rate 18 16 16 Blood Pressure 123/82 128/79 Blood Pressure [Ri ght Upper Arm] 135/78 Pulse Oximetry 100 94 99 Oxygen Delivery Me thod Room Air Room Air Nasal Cannula Oxygen Flow Rate 2 01/29/25 13:39 01/29/25 15:10 01/29/25 15:15 Temperature 97.2 F L Pulse Rate 58 L 77 70 Pulse Rate [Right Pulse Oximeter] Respiratory Rate 16 19 13 Blood Pressure 120/67 116/69 106/64 Blood Pressure [Ri ght Upper Arm] Pulse Oximetry 99 94 94 Oxygen Delivery Me thod Nasal Cannula Room Air Oxygen Flow Rate 2 01/29/25 15:20 01/29/25 15:25 01/29/25 15:30 Temperature Pulse Rate 70 65 55 L Pulse Rate [Right Pulse Oximeter] Respiratory Rate 15 11 L 12 Blood Pressure 107/62 108/68 116/65 Blood Pressure [Ri ght Upper Arm] Pulse Oximetry 93 92 89 Oxygen Delivery Me thod Nasal Cannula Oxygen Flow Rate 5 01/29/25 15:35 01/29/25 15:40 Temperature 97.7 F Pulse Rate 54 L 49 L Pulse Rate [Right Pulse Oximeter] Respiratory Rate 13 13 Blood Pressure 102/61 105/60 Blood Pressure [Ri ght Upper Arm] Pulse Oximetry 100 99 Oxygen Delivery Me thod Room Air Oxygen Flow Rate Documenting provider has reviewed patient's vital signs: yes Labs Labs: Short CBC 01/29/25 Range/Units 12:12 WBC 3.90 L (4.50-11.00) K/uL Hgb 14.6 (12.0-16.0) gm/dL Hct 43.4 (33.0-51.0) % Plt Count 258 (140-440) K/uL BMP 01/29/25 12:12 Sodium 135 Potassium 4.2 Chloride 99 Carbon Dioxide 25 BUN 18 Creatinine 0.7 Glucose 104 Calcium 9.6 Urine 01/29/25 Range/Units 11:55 Urine Color Yellow (Yellow) Urine Appearance Clear (Clear) Urine pH 5.5 (5.0-8.5) Ur Specific [place] >= 1.030 (1.000-1.030) Urine Protein Trace A (Negative) Urine Glucose (UA) Negative (Negative) Assessment and Plan Assessment and plan (1) Closed fracture of neck of left femur: Problem comment: Valgus impacted subcapital femoral neck fracture. ORIF 01/29/2025, Dr. Pedrito Tamayo. No complications. Status: Acute (2) Osteoporosis: Problem comment: History of osteopenia. With fragility fracture now osteoporosis. Recommend vitamin-D, calcium, Fosamax. Patient chooses to have her primary care provider address her osteoporosis. Status: Acute (3) Peripheral sensory neuropathy: Status: Acute Plan 79-year-old female admitted to the hospital for femur fracture. Now postop addressing recovery from surgery, pain management and osteoporosis. Possible discharge to home tomorrow if she is able to walk stairs and pain is adequately managed. Total Time Spent Total Time Spent: Total time spent today is 50 minutes in reviewing outside records, coordination of care and discussing with patient , and other providers ongoing management of fracture, disability, neuropathy, osteoporosis
--- NOTE | 2025-01-29 19:42 | PC.NURSE ---
End of shift-- Pleasant and cooperative patient arrived from PACU at just before 1600. VSS and pt is afebrile. SPO2 maintained >90% on RA. She c/o some mild aching in her left leg (knee, ankle and hip) which she rated 2/10 and was given only scheduled Tylenol and ice and stated it was tolerable. Dressing to left hip is C/D/I. CMS WNL. LS CTA. Pt was up to the commode with assist of 2, walker and belt and tolerated it fair. Left knee was buckling and pt was returned to bed. at bedside and appears loving and supportive.
[2025-01-29] MEDS: SENNOSIDES 1 TAB TABLET 2 TAB PO (21:34)
[2025-01-29] MEDS: MELATONIN 3 MG TABLET PO (21:42)
[2025-01-29] MEDS: ASPIRIN 81 MG TABLET EC PO (21:43)
[2025-01-29] MEDS: CEFAZOLIN 1 GM in 0.9 % SODIUM CHLORIDE Mini-bag 100 ML IVPB (21:56)
[2025-01-30 04:12] VITALS: BP 125/56; PULSE 62; RESP 18; TEMP 37.2; O2SAT 98
[2025-01-30] MEDS: ACETAMINOPHEN 325 MG TABLET 650 MG PO ×2 (04:18→09:17)
[2025-01-30] MEDS: CEFAZOLIN 1 GM in 0.9 % SODIUM CHLORIDE Mini-bag 100 ML IVPB (04:40)
--- NOTE | 2025-01-30 06:28 | PC.NURSE ---
Shift note ([id number]): Patient pleasant, alert and oriented. Transferred with walker and assist of two. Given scheduled Tylenol and ice packs for pain in left hip rated 3/10. PRN Melatonin and aromatherapy given to promote sleep. Tolerating regular diet. Dressing to right hip C, D & I. IV to right AC no longer patent and was discontinued. New IV inserted in right wrist.?
--- NOTE | 2025-01-30 06:28 | PC.NURSE ---
Shift note ([id number]): Patient pleasant, alert and oriented. Transferred with walker and assist of two. Given scheduled Tylenol and ice packs for pain in left hip rated 3/10. PRN Melatonin and aromatherapy given to promote sleep. Tolerating regular diet. Dressing to right hip C, D & I. IV to right AC no longer patent and was discontinued. New IV inserted in right wrist.?
[2025-01-30 06:47] LABS: Hematocrit* 40.6 % (33.0-51.0); Hemoglobin* 13.6 gm/dL (12.0-16.0); Mean Corpuscular HGB Conc 34 gm/dL (32-36); Mean Corpuscular Hemoglobin 31 pg (26-34); Mean Corpuscular Volume 93 fL (80-100); Red Blood Count* 4.36 m/uL (4.00-5.20); White Blood Count* 7.07 K/uL (4.50-11.00)
[2025-01-30 06:50] LABS: Slide Review Reflex No
[2025-01-30 08:23] VITALS: BP 115/61; PULSE 78; RESP 18; TEMP 37.3; O2SAT 97
[2025-01-30] MEDS: ASPIRIN 81 MG TABLET EC PO (09:17)
[2025-01-30] MEDS: SENNOSIDES 1 TAB TABLET 2 TAB PO (09:18)
--- NOTE | 2025-01-30 09:27 | PM.ORPN ---
Subjective Subjective Time Seen by Provider: 09:15 Date Seen: 01/30/25 Principal diagnosis: Day 1 s/p left femoral neck fracture fixation (Dr. Tamayo) Interval history: Clarita is doing well this morning and is resting comfortably in her recliner. She c/o left hip pain that is well managed with rest, ice acetaminophen and Oxycodone PRN. Denies postop chest pain, SOB, fever, chills, nausea and vomiting. She does report a low grade fever overnight of 99 degrees. Patient has already ambulated to the restroom with a walker. She is highly motivated to be discharged to home today. Patient has not yet had a bowel movement and does report flatulence. Ortho Exam Narrative Exam Narrative: Incision/Dressing: Dressing appears clean and dry. No drainage present. Mepilex intact. Left hip appears moderately swollen but supple with no obvious erythema, fluctuance or excessive warmth. No ecchymosis or erythematous streaking. Warmth around the wound is appropriate. Ice is being utilized as needed. CMS: Intact distally with 2+ Dorsalis pedis and Posterior Tibial pulses. Confirmed sensation distally. Calf: Bilateral calves are supple, with no swelling, pain, tenderness, erythema, discoloration or coolness to the touch. Constitutional: Patient is alert and oriented x3. Patient is in no acute distress and converses without labored breathing. Patient is able to make decisions and demonstrates good insight. Patient is pleasant and cooperative. Affect is full range and appropriate for the circumstances. Const Vital Signs, click to edit/add: Vital Signs - 24 hr 01/29/25 11:20 01/29/25 13:28 01/29/25 13:35 Temperature 97.5 F L Pulse Rate 77 71 Pulse Rate [Left Pulse Oximeter] Pulse Rate [Right Pulse Oximeter] 71 Respiratory Rate 18 16 16 Blood Pressure 123/82 128/79 Blood Pressure [Left Arm] Blood Pressure [Right Arm] Blood Pressure [Right Upper Arm] 135/78 Pulse Oximetry 100 94 99 Oxygen Delivery Method Room Air Room Air Nasal Cannula Oxygen Flow Rate 2 01/29/25 13:39 01/29/25 15:10 01/29/25 15:15 Temperature 97.2 F L Pulse Rate 58 L 77 70 Pulse Rate [Left Pulse Oximeter] Pulse Rate [Right Pulse Oximeter] Respiratory Rate 16 19 13 Blood Pressure 120/67 116/69 106/64 Blood Pressure [Left Arm] Blood Pressure [Right Arm] Blood Pressure [Right Upper Arm] Pulse Oximetry 99 94 94 Oxygen Delivery Method Nasal Cannula Room Air Oxygen Flow Rate 2 01/29/25 15:20 01/29/25 15:25 01/29/25 15:30 Temperature Pulse Rate 70 65 55 L Pulse Rate [Left Pulse Oximeter] Pulse Rate [Right Pulse Oximeter] Respiratory Rate 15 11 L 12 Blood Pressure 107/62 108/68 116/65 Blood Pressure [Left Arm] Blood Pressure [Right Arm] Blood Pressure [Right Upper Arm] Pulse Oximetry 93 92 89 Oxygen Delivery Method Nasal Cannula Oxygen Flow Rate 5 01/29/25 15:35 01/29/25 15:40 01/29/25 15:50 Temperature 97.7 F 96.7 F L Pulse Rate 54 L 49 L Pulse Rate [Left Pulse Oximeter] 58 L Pulse Rate [Right Pulse Oximeter] Respiratory Rate 13 13 16 Blood Pressure 102/61 105/60 Blood Pressure [Left Arm] Blood Pressure [Right Arm] 109/65 Blood Pressure [Right Upper Arm] Pulse Oximetry 100 99 94 Oxygen Delivery Method Room Air Oxygen Flow Rate 01/29/25 16:00 01/29/25 16:15 01/29/25 16:30 Temperature 96.7 F L 96.7 F L Pulse Rate Pulse Rate [Left Pulse Oximeter] 51 L 56 L 55 L Pulse Rate [Right Pulse Oximeter] Respiratory Rate 16 16 16 Blood Pressure Blood Pressure [Left Arm] Blood Pressure [Right Arm] 117/72 127/76 124/75 Blood Pressure [Right Upper Arm] Pulse Oximetry 94 92 97 Oxygen Delivery Method Room Air Room Air Room Air Oxygen Flow Rate 01/29/25 16:45 01/29/25 17:15 01/29/25 18:00 Temperature 97.0 F L 97.9 F Pulse Rate Pulse Rate [Left Pulse Oximeter] 56 L 61 62 Pulse Rate [Right Pulse Oximeter] Respiratory Rate 16 16 16 Blood Pressure Blood Pressure [Left Arm] Blood Pressure [Right Arm] 126/70 134/75 143/76 H Blood Pressure [Right Upper Arm] Pulse Oximetry 97 97 99 Oxygen Delivery Method Room Air Room Air Room Air Oxygen Flow Rate 01/29/25 19:57 01/29/25 21:00 01/29/25 22:30 Temperature 98.8 F 99.1 F Pulse Rate Pulse Rate [Left Pulse Oximeter] 77 64 Pulse Rate [Right Pulse Oximeter] Respiratory Rate 17 17 Blood Pressure Blood Pressure [Left Arm] Blood Pressure [Right Arm] 111/72 Blood Pressure [Right Upper Arm] Pulse Oximetry 95 95 97 Oxygen Delivery Method Room Air Room Air Room Air Oxygen Flow Rate 01/29/25 22:30 01/30/25 04:12 01/30/25 08:23 Temperature 99.0 F 98.9 F Pulse Rate Pulse Rate [Left Pulse Oximeter] 82 62 78 Pulse Rate [Right Pulse Oximeter] Respiratory Rate 17 18 18 Blood Pressure Blood Pressure [Left Arm] Blood Pressure [Right Arm] 109/54 L 125/56 L Blood Pressure [Right Upper Arm] Pulse Oximetry 97 98 Oxygen Delivery Method Room Air Room Air Oxygen Flow Rate 01/30/25 08:23 01/30/25 08:23 Temperature 99.1 F Pulse Rate Pulse Rate [Left Pulse Oximeter] 78 Pulse Rate [Right Pulse Oximeter] Respiratory Rate 18 18 Blood Pressure Blood Pressure [Left Arm] 115/61 Blood Pressure [Right Arm] Blood Pressure [Right Upper Arm] Pulse Oximetry 97 97 Oxygen Delivery Method Room Air Room Air Oxygen Flow Rate Assessment and Plan Assessment and plan (1) Closed fracture of neck of left femur: Problem details: Valgus impacted subcapital femoral neck fracture. ORIF 01/29/2025, Dr. Pedrito Tamayo. No complications. Status: Acute Assessment and Plan: - Anticipate patient will be discharged to home later today. Patient is highly motivated. SNF is not necessary. - Mepilex dressing will remain in place until Orthopedic follow-up appointment in 2 weeks. Dressing is waterproof. May shower. - Weight bear as tolerated with walker for assistance. - For pain management, recommend ice, elevation, Tylenol and Oxycodone PRN. ? - For DVT prophylaxis: aspirin 81 mg BID x 35 days. Also recommend ankle pumps when sedentary and frequent ambulation. - Follow-up with Ladonna Ball PA-C in 2 weeks in [place]. - Follow-up with Dr. Pedrito Tamayo in 6 weeks. - Notify Orthopedics with any questions or concerns. ([phone])
[2025-01-30 11:00] VITALS: BP 114/68; PULSE 78; RESP 18; O2SAT 99
--- NOTE | 2025-01-30 12:02 | PC.SOCIAL ---
Discharge planning: hydroponics worker met with the pt and her to check-in after surgery. The pt feels good about going home and has no concerns. Social work to follow-up as needed.
--- NOTE | 2025-01-30 14:11 | PC.NURSE ---
Nursing Care Hours: [id number] Pt this shift calm and cooperative, alert and oriented. Pain tolerable to pt. Half dose oxycodone provided prior to PT/OT and pt requested half dose post therapy. VSS. Ambulated to BR with Ax1 with walker and gait belt. IV removed for discharge. Instructions went over with pt and spouse. All questions and concerns addressed. Wheeled out to vehicle in stable condition.
== END 2025-01-30 12:50 | disposition home or self-care (01) | DRG 481 ==
LOC: ED 12:00 → SS 12:16 → MEDSURG 16:50 → SS 01-30 10:19 → MEDSURG 01-30 10:19
PROVIDERS: Admitting Provider Family Medicine; Emergency Provider Family Medicine; PCP Internal Medicine; Visit Provider Orthopaedic Surgery
PROC: 0QS704Z Reposition Left Upper Femur with Internal Fixation Device, Open Approach (ICD-10-PCS; principal; 2025-01-29 13:00)
DX: S72.012A Unspecified intracapsular fracture of left femur, initial encounter for closed fracture (principal); N39.0 Urinary tract infection, site not specified; G89.18 Other acute postprocedural pain; G60.8 Other hereditary and idiopathic neuropathies; F41.9 Anxiety disorder, unspecified; M85.80 Other specified disorders of bone density and structure, unspecified site; I44.0 Atrioventricular block, first degree; W07.XXXA Fall from chair, initial encounter; Y92.009 Unspecified place in unspecified non-institutional (private) residence as the place of occurrence of the external cause; Z87.891 Personal history of nicotine dependence; Z79.82 Long term (current) use of aspirin
CPT/HCPCS: 01210; 01230; 36415; 64450; 71045; 73502; 76000; 76942; 80048; 81001; 85025; 85027; 86850; 86900; 86901; 87086; 93005; 97110; 97116; 97161; 97165; 97530; 97535; 99100; 99285; A9270; C1713; J0690; J0696; J1100; J2250; J2371; J2405; J2704; J2710; J2795; J3010; J7030; J7120